=== PATIENT | female | born 1970 | race Caucasian/White ===

== ENCOUNTER 2016-12-23 20:17 | Emergency (ER) | payer OTHER ==
[2016-12-23 20:36] VITALS: RESP 16; O2SAT 94
[2016-12-23] MEDS ORDERED: IBUPROFEN 200 MG TAB PO ONE (20:49)
--- NOTE | 2016-12-23 20:53 | EDPHY ---
H & P Stated Complaint: flu like symptoms since yesterday Time Seen by Provider: 12/23/16 20:50 HPI/ROS: HPI: This is a 46-year-old female who presents with Chief Complaint: Flu-like symptoms Location: Body Quality: " Feeling like I have the flu" Duration: 1 day Signs and Symptoms:+ fever, + body aches, + decreased appetite, + cough, no neck stiffness, no dysuria, no abdominal pain, no headache, no nausea vomiting, no sore throat Timing: Sudden, constant Severity: Moderate Context: Patient complains of "coming down with the flu" x1 day. 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 She is normally generally healthy denies history of asthma/diabetes. She complains of nasal congestion, body aches, fever, chills. She has rested all day and has drink plenty of fluids. Modifying Factors: NyQuil p.m. taken 2 hours ago Comment: ROS: Constitutional: + fever, no chills, no weight loss Eyes: No blurred vision Respiratory: No shortness of breath, no cough Cardiovascular: No chest pain Gastrointestinal: No nausea, no vomiting no diarrhea Genitourinary: No dysuria Extremities: No myalgias Neurologic: No weakness, no numbness Skin: No rashes Hematologic: No bruising, no bleeding MEDICAL/SURGICAL/SOCIAL HISTORY: Medical history: Generally healthy Surgical history: Denies Social history: CONSTITUTIONAL: Pleasant adult female, awake and alert, no obvious distress HEENT: Atraumatic and normocephalic, PERRL, EOMI. Tympanic membranes clear. Oropharynx clear, no exudate and moist pink mucosa. Airway patent. No lymphadenopathy. No meningismus. Cardiovascular: Normal S1/S2, tachycardia, regular rhythm, without murmur rub or gallop. PULMONARY/CHEST: Symmetrical and nontender. Clear to auscultation bilaterally. Good air movement. No accessory muscle usage. ABDOMEN: Soft, nondistended, nontender, no rebound, no guarding, no peritoneal signs, no masses or organomegaly. No CVAT. EXTREMITIES: 2/2 pulses, no deformities, no clubbing, no cyanosis or edema. NEUROLOGICAL: no focal neuro deficits. GCS 15. Speech clear. SKIN: Warm and dry, no erythema. no rash. Good capillary refill. Source: Patient Exam Limitations: No limitations - Personal History LMP (Females 10-55): 1-7 Days Ago Current Tetanus/Diphtheria Vaccine: Yes - Medical/Surgical History Hx Asthma: No Hx Chronic Respiratory Disease: No Hx Diabetes: No Hx Cardiac Disease: No Hx Renal Disease: No Hx Cirrhosis: No Hx Alcoholism: No Hx HIV/AIDS: No Hx Splenectomy or Spleen Trauma: No Other PMH: PMHx: depression. PSHx: denies - Social History Smoking Status: Never smoked Constitutional: Initial Vital Signs Temperature (C) 39 C H 12/23/16 20:31 Heart Rate 117 H 12/23/16 20:31 Respiratory Rate 16 12/23/16 20:31 Blood Pressure 105/68 12/23/16 20:31 O2 Sat (%) 94 12/23/16 20:31 O2 Delivery Mode Room Air Allergies/Adverse Reactions: No Known Allergies Allergy (Unverified 12/23/16 20:31) Home Medications: Medication Instructions Recorded Vit D3/Folic Acid/B2/B6/B12 12/23/16 Zoloft 50mg (*) 12/23/16 Medical Decision Making - Diagnostics Imaging Results: Imaging Impressions Chest X-Ray 12/23/16 20:49 Impression: Clear lungs. No pneumonia. ED Course/Re-evaluation: Febrile and tachycardic Patient politely declines IV fluids and labs as she believe she has the flu. Given influenza, chest x-ray and ibuprofen ordered Chest x-ray my read via PAC shows no opacity/effusion/pneumothorax Influenza test results will not be available until tomorrow Patient's fever responded to the ibuprofen. Patient is requesting to be discharged home. She has politely declined a work note. Advised to continue supportive care Differential Diagnosis: Adult fever including but not limited to viral syndromes including influenza, urinary tract infection, pneumonia and sepsis. - Data Points Laboratory Results: 12/23/16 20:50 Influenza A & B (PCR) Pending Medications Given: Discontinued Medications Ibuprofen (Motrin) 800 mg PO EDNOW ONE Stop: 12/23/16 20:50 Last Admin: 12/23/16 20:57 Dose: 800 mg Departure - Departure Disposition: Home, Routine, Self-Care Clinical Impression: Influenza-like illness Condition: Good Instructions: Influenza (ED)
[2016-12-23 22:36] VITALS: BP 114/64; PULSE 88; TEMP 99.7
== END 2016-12-23 22:36 | disposition home or self-care (01) ==
DX: J11.1 Influenza due to unidentified influenza virus with other respiratory manifestations (principal)